=== PATIENT | female | born 1990 | race African-American/Black ===

== ENCOUNTER 2020-06-04 22:11 | Emergency (ER) | payer OTHER ==
[~2020-06-04] VITALS: Ht 154.9 cm; Wt 79.0 kg
[2020-06-05] MEDS ORDERED: HYDROCODONE/ACETAMINOPHEN 5/325MG TABLET PO ONE (01:00)
[2020-06-05 01:49] VITALS: BP 136/86
== END 2020-06-05 01:50 | disposition home or self-care (01) ==
LOC: ER 22:11
DX: N76.4 Abscess of vulva (principal); Z98.890 Other specified postprocedural states
CPT/HCPCS: 10060; 81025; 99283; Z7610